=== PATIENT | male | born 1980 | race Caucasian/White ===

== ENCOUNTER 2024-06-07 01:43 | Emergency (ER) | payer SELFPAY ==
[2024-06-07] MEDS: Ketorolac 30 MG/ML SDV IM ONE (02:02)
[2024-06-07] MEDS: Benzocaine 20% Topical Spray UD MUCMEM ONE (02:03)
[2024-06-07] MEDS: Lidocaine 2% Viscous Solution 15 ML UD PO ONE (02:03)
== END 2024-06-07 02:09 | disposition home or self-care (01) ==
LOC: MW.ED 01:43
DX: K02.9 Dental caries, unspecified (principal); Z79.899 Other long term (current) drug therapy
CPT/HCPCS: 96372; 99282; A9270; J1885